=== PATIENT | male | born 2000 | race Caucasian/White ===

== ENCOUNTER 2022-07-25 08:22 | Emergency (ER) | payer MEDICARE ==
[~2022-07-25] VITALS: Ht 177.8 cm; Wt 80.7 kg
[2022-07-25] MEDS ORDERED: METHYLPREDNISOLONE SOD SUCC 125 MG/2ML VIAL ONE (08:25)
[2022-07-25] MEDS ORDERED: DIPHENHYDRAMINE HCL 25 MG CAP ONE (08:26)
[2022-07-25] MEDS ORDERED: FAMOTIDINE 20 MG TAB ONE (08:26)
[2022-07-25] MEDS ORDERED: DIPHENHYDRAMINE HCL 25 MG CAP PO ONE (08:30)
[2022-07-25] MEDS ORDERED: FAMOTIDINE 20 MG TAB PO ONE (08:30)
[2022-07-25] MEDS ORDERED: METHYLPREDNISOLONE SOD SUCC 125 MG/2ML VIAL IM ONE (08:30)
[2022-07-25] MEDS ORDERED: MEDROL4 M2 PO (08:37)
== END 2022-07-25 08:50 | disposition home or self-care (01) ==
LOC: ER 08:26
DX: L25.9 Unspecified contact dermatitis, unspecified cause (principal)
CPT/HCPCS: 99283; J2930